=== PATIENT | male | born 1955 | race Caucasian/White ===

== ENCOUNTER 2017-12-06 17:34 | Inpatient (IN) | payer OTHER ==
[~2017-12-06] VITALS: Ht 177.8 cm; Wt 112.1 kg
[~2017-12-06 17:34] MED LIST: 24HOUR ALLERGY10 MG PO; BACLOFEN20 MG PO; BISAC-EVAC10 MG PR; CHROMIUM PICO200 MC1 PO; CINNAMON500 MG PO; COL-RITE100 M1 PO; CONSTULOSE10 GM/15 M PO; COREG12.5 M1 PO; CRANBERRY FRUIT PO; CRANBERRY JUIC425 MG PO; DITROPAN5 MG PO; ENEMA; FLEET ENEMA-AD118 ML PR; FOLIC ACID0.8 MG PO; GENTAMICIN40 MG/1 ML IM; GLUCOTROL XL5 MG PO; KLOR-CON M2020 MEQ PO; LASIX40 MG PO; LIORESAL10 MG PO; LOTENSIN40 MG PO; NORVASC10 MG PO; PRAVACHOL20 MG PO; SENNA PLUS TAB1 EACH PO; THERA-M1 EACH PO; TYLENOL REGULA325 MG PO; VITAMIN D-3 401 EACH PO; VITAMIN D31000 UNI2 PO
[2017-12-06 18:09] LABS: HEMATOCRIT 34.3 % (38.0-50.0); HEMOGLOBIN 12.1 G/DL (12.5-16.6); MCH 31.2 PG (29.0-34.0); MCHC 35.3 G/DL (30.0-36.0); MCV 88.4 FL (86-99); PLATELET COUNT 218 K/uL (156-360); RBC DIS.WIDTH-CV 14.9 % (11.8-14.6); RBC DIS.WIDTH-SD 48.1 % (39-53); RED BLOOD COUNT 3.88 M/uL (4.00-5.50); WHITE BLOOD COUNT 10.8 K/uL (4.1-10.2)
[2017-12-06 18:18] LABS: CHLORIDE 107 mEq/L (99-109); POTASSIUM 3.1 mEq/L (3.7-5.4); SODIUM 142 mEq/L (136-147)
[2017-12-06 18:20] LABS: GLUCOSE 115 mg/dL (70-99)
[2017-12-06 18:24] LABS: CREATININE 2.2 mg/dL (0.6-1.3); GFR ESTIMATE (CALCULATED) 32 mL/min/ (58.99-99999)
[2017-12-06 18:25] LABS: UREA NITROGEN (BUN) 35 mg/dL (9-23)
[2017-12-06] MEDS ORDERED: APRESOLINE10 MG PO (19:32)
[2017-12-06] MEDS ORDERED: GENTAMICIN40 MG/1 ML IM (19:34)
[2017-12-06] MEDS ORDERED: TIZANIDINE HCL4 MG PO ×2 (19:35→19:36)
[2017-12-06] MEDS ORDERED: BACLOFEN20 MG PO (19:36)
[2017-12-06 21:49] VITALS: BP 135/69
[2017-12-06 22:08] LABS: INTACT PARATHYROID HORMONE < 6 pg/mL (10-69)
[2017-12-06 23:20] VITALS: BP 157/78
[2017-12-07 04:25] VITALS: BP 147/73
[2017-12-07 04:59] LABS: APPEARANCE CLOUDY ((CLEAR)); BILIRUBIN NEGATIVE; BLOOD NEGATIVE; COLOR YELLOW ((YELLOW)); GLUCOSE (STRIP) NEGATIVE; KETONES NEGATIVE; LEUKOCYTES MODERATE; NITRITE NEGATIVE; PROTEIN (STRIP) NEGATIVE; SPECIFIC GRAVITY 1.008 (1.000-1.030); UROBILINOGEN 0.2 MG/DL (0.2-1.0)
[2017-12-07 05:14] LABS: URINE OSMOLALITY 277 MOSM/KG (300-1100)
[2017-12-07 05:29] LABS: BACTERIA 1+ /HPF; EPITHELIAL CELLS RARE /HPF; MUCUS NONE SEEN /LPF; RED BLOOD CELLS 0-5 /HPF (0-5); UCUL ADDED? YES
[2017-12-07 05:31] LABS: AMORPHOUS PHOSPHATE CRYSTALS 4+
[2017-12-07 05:59] LABS: HEMATOCRIT 34.2 % (38.0-50.0); HEMOGLOBIN 11.6 G/DL (12.5-16.6); MCH 30.3 PG (29.0-34.0); MCHC 33.9 G/DL (30.0-36.0); MCV 89.3 FL (86-99); PLATELET COUNT 221 K/uL (156-360); RBC DIS.WIDTH-CV 15.2 % (11.8-14.6); RBC DIS.WIDTH-SD 49.5 % (39-53); RED BLOOD COUNT 3.83 M/uL (4.00-5.50); WHITE BLOOD COUNT 7.3 K/uL (4.1-10.2)
[2017-12-07 06:21] LABS: ALBUMIN 3.1 G/DL (3.2-4.8); CHLORIDE 110 MEQ/L (99-109); CREATININE 1.8 MG/DL (0.6-1.3); GFR ESTIMATE (CALCULATED) 41 mL/min/ (58.99-99999); GLUCOSE 112 mg/dL (70-99); SODIUM 143 MEQ/L (136-147); UREA NITROGEN (BUN) 32 mg/dL (9-23)
[2017-12-07 07:14] LABS: EOSINOPHILS,URINE NONE SEEN
[2017-12-07 08:04] VITALS: BP 173/82
[2017-12-07 11:10] LABS: THYROTROPIN (TSH) 1.6 MIU/L (0.4-5.5)
[2017-12-07 11:20] LABS: ALKALINE PHOSPHATASE 51 IU/L (3-129)
[2017-12-07 11:31] VITALS: BP 181/81
[2017-12-07 12:25] LABS: A/G RATIO 0.9 (1.1-1.8); ALBUMIN 3.3 G/DL (3.4-5.0); GLOBULINS 3.5 G/DL (2.3-3.5); TOTAL PROTEIN 6.8 G/DL (6.4-8.2)
[2017-12-07 12:25] LABS: URINE TOTAL PROTEIN 12 MG/DL (0-10)
[2017-12-07 15:00] VITALS: BP 139/85
[2017-12-07 16:56] LABS: CHLORIDE 112 MEQ/L (99-109); CREATININE 1.6 MG/DL (0.6-1.3); GFR ESTIMATE (CALCULATED) 47 mL/min/ (58.99-99999); PHOSPHORUS 3.2 mg/dL (2.5-4.9); POTASSIUM 3.5 MEQ/L (3.7-5.4); SODIUM 142 MEQ/L (136-147); UREA NITROGEN (BUN) 32 mg/dL (9-23)
[2017-12-07 17:05] LABS: GLUCOSE 80 mg/dL (70-99)
[2017-12-07 19:59] VITALS: BP 134/78
[2017-12-08] VITALS (7 sets, daily range): BP systolic 101–156; BP diastolic 53–96
[2017-12-08 06:46] LABS: HEMATOCRIT 36.2 % (38.0-50.0); MCHC 33.1 G/DL (30.0-36.0); MCV 90.5 FL (86-99); PLATELET COUNT 209 K/uL (156-360); RBC DIS.WIDTH-CV 15.2 % (11.8-14.6); RBC DIS.WIDTH-SD 50.4 % (39-53); WHITE BLOOD COUNT 8.5 K/uL (4.1-10.2)
[2017-12-08 07:01] LABS: ALBUMIN 3.2 G/DL (3.2-4.8); CHLORIDE 113 MEQ/L (99-109); CREATININE 1.5 MG/DL (0.6-1.3); GFR ESTIMATE (CALCULATED) 50 mL/min/ (58.99-99999); GLUCOSE 84 mg/dL (70-99); PHOSPHORUS 3.4 mg/dL (2.5-4.9); POTASSIUM 3.6 MEQ/L (3.7-5.4); SODIUM 140 MEQ/L (136-147); UREA NITROGEN (BUN) 26 mg/dL (9-23)
[2017-12-08 14:54] LABS: MAGNESIUM 1.9 mg/dl (1.3-2.7)
[2017-12-09 07:10] VITALS: BP 143/81
[2017-12-09 07:38] LABS: BASOPHIL (%) 1.4 % (0-1); BASOPHIL COUNT 0.1 K/uL (0-0.1); EOSINOPHIL COUNT 0.3 K/uL (0-0.3); HEMATOCRIT 39.9 % (38.0-50.0); HEMOGLOBIN 13.2 G/DL (12.5-16.6); IMMATURE GRANULOCYTE (%) 0.7 % (0.0-0.7); LYMPHOCYTE (%) 30.8 % (15-42); LYMPHOCYTE COUNT 2.7 K/uL (1.0-2.8); MCH 30.3 PG (29.0-34.0); MCHC 33.1 G/DL (30.0-36.0); MCV 91.5 FL (86-99); MONOCYTE COUNT 1.2 K/uL (0-0.8); NEUTROPHIL (%) 49.1 % (45-76); NEUTROPHIL COUNT 4.2 K/uL (1.8-6.4); PLATELET COUNT 196 K/uL (156-360); RBC DIS.WIDTH-CV 15.4 % (11.8-14.6); RBC DIS.WIDTH-SD 51.2 % (39-53); RED BLOOD COUNT 4.36 M/uL (4.00-5.50); WHITE BLOOD COUNT 8.6 K/uL (4.1-10.2)
[2017-12-09 08:14] LABS: ALBUMIN 3.3 G/DL (3.2-4.8); CHLORIDE 113 MEQ/L (99-109); CREATININE 1.5 MG/DL (0.6-1.3); GFR ESTIMATE (CALCULATED) 50 mL/min/ (58.99-99999); PHOSPHORUS 3.2 mg/dL (2.5-4.9); POTASSIUM 4.1 MEQ/L (3.7-5.4); SODIUM 144 MEQ/L (136-147); UREA NITROGEN (BUN) 26 mg/dL (9-23)
[2017-12-09 08:15] LABS: GLUCOSE 106 mg/dL (70-99)
[2017-12-09 13:44] LABS: ALBUMIN 3.29 G/DL (3.6-4.9); ALPHA-1 GLOBULIN 0.39 G/DL (0.15-0.40); ALPHA-2 GLOBULIN 0.92 G/DL (0.45-0.85); BETA-GLOBULIN 0.92 G/DL (0.65-1.15); GAMMA-GLOBULIN 1.28 G/DL (0.60-1.35)
[2017-12-09 16:00] VITALS: BP 147/81
[2017-12-09 18:10] LABS: ALBUMIN 3.3 G/DL (3.2-4.8); CHLORIDE 109 MEQ/L (99-109); CREATININE 1.2 MG/DL (0.6-1.3); GFR ESTIMATE (CALCULATED) > 59 mL/min/ (58.99-99999); GLUCOSE 151 mg/dL (70-99); PHOSPHORUS 2.3 mg/dL (2.5-4.9); POTASSIUM 3.3 MEQ/L (3.7-5.4); SODIUM 140 MEQ/L (136-147); UREA NITROGEN (BUN) 22 mg/dL (9-23)
[2017-12-09 23:10] VITALS: BP 132/73; BP 132/735
[2017-12-10 06:02] LABS: ALBUMIN 3.3 G/DL (3.2-4.8); CHLORIDE 110 MEQ/L (99-109); CREATININE 1.2 MG/DL (0.6-1.3); GFR ESTIMATE (CALCULATED) > 59 mL/min/ (58.99-99999); GLUCOSE 125 mg/dL (70-99); PHOSPHORUS 2.8 mg/dL (2.5-4.9); POTASSIUM 3.3 MEQ/L (3.7-5.4); SODIUM 141 MEQ/L (136-147); UREA NITROGEN (BUN) 18 mg/dL (9-23)
[2017-12-10 06:16] LABS: CHLORIDE 111 MEQ/L (99-109); CREATININE 1.1 MG/DL (0.6-1.3); GFR ESTIMATE (CALCULATED) > 59 mL/min/ (58.99-99999); GLUCOSE 123 mg/dL (70-99); POTASSIUM 3.4 MEQ/L (3.7-5.4); SODIUM 142 MEQ/L (136-147); UREA NITROGEN (BUN) 18 mg/dL (9-23)
[2017-12-10 07:05] VITALS: BP 145/86
[2017-12-10 15:50] VITALS: BP 144/81
[2017-12-10 23:28] VITALS: BP 134/68
[2017-12-11 06:57] LABS: ALBUMIN 3.3 G/DL (3.2-4.8); CHLORIDE 111 MEQ/L (99-109); CREATININE 1.1 MG/DL (0.6-1.3); GFR ESTIMATE (CALCULATED) > 59 mL/min/ (58.99-99999); GLUCOSE 101 mg/dL (70-99); PHOSPHORUS 2.8 mg/dL (2.5-4.9); POTASSIUM 3.3 MEQ/L (3.7-5.4); SODIUM 143 MEQ/L (136-147); UREA NITROGEN (BUN) 15 mg/dL (9-23)
[2017-12-11 07:15] VITALS: BP 157/80
[2017-12-11 15:30] VITALS: BP 153/85
[2017-12-11 21:10] VITALS: BP 123/77
[2017-12-11 22:53] VITALS: BP 140/80
[2017-12-12 06:44] LABS: BASOPHIL (%) 1.1 % (0-1); BASOPHIL COUNT 0.1 K/uL (0-0.1); EOSINOPHIL (%) 3.1 % (0-5); EOSINOPHIL COUNT 0.4 K/uL (0-0.3); HEMOGLOBIN 12.5 G/DL (12.5-16.6); IMMATURE GRANULOCYTE (%) 1.8 % (0.0-0.7); LYMPHOCYTE (%) 18.1 % (15-42); MCH 29.5 PG (29.0-34.0); MCHC 33.8 G/DL (30.0-36.0); MONOCYTE (%) 12.1 % (3-12); MONOCYTE COUNT 1.4 K/uL (0-0.8); NEUTROPHIL (%) 63.8 % (45-76); NEUTROPHIL COUNT 7.2 K/uL (1.8-6.4); PLATELET COUNT 241 K/uL (156-360); RBC DIS.WIDTH-CV 15.5 % (11.8-14.6); RBC DIS.WIDTH-SD 48.9 % (39-53); RED BLOOD COUNT 4.24 M/uL (4.00-5.50); WHITE BLOOD COUNT 11.2 K/uL (4.1-10.2)
[2017-12-12 06:46] LABS: MCV 87.3 FL (86-99)
[2017-12-12 06:56] LABS: ALBUMIN 3.4 G/DL (3.2-4.8); CHLORIDE 113 MEQ/L (99-109); CREATININE 1.1 MG/DL (0.6-1.3); GFR ESTIMATE (CALCULATED) > 59 mL/min/ (58.99-99999); GLUCOSE 118 mg/dL (70-99); PHOSPHORUS 2.7 mg/dL (2.5-4.9); SODIUM 142 MEQ/L (136-147); UREA NITROGEN (BUN) 17 mg/dL (9-23)
[2017-12-12 06:58] LABS: POTASSIUM 4.1 MEQ/L (3.7-5.4)
[2017-12-12 07:40] VITALS: BP 174/102
[2017-12-13] VITALS: BP 126/76
[2017-12-13 08:21] VITALS: BP 138/73
[2017-12-13 15:52] VITALS: BP 142/77
[2017-12-13 19:33] VITALS: BP 130/85
[2017-12-13 23:17] VITALS: BP 131/77
[2017-12-14 06:42] LABS: HEMATOCRIT 33.3 % (38.0-50.0); HEMOGLOBIN 11.2 G/DL (12.5-16.6); MCH 30.2 PG (29.0-34.0); MCHC 33.6 G/DL (30.0-36.0); MCV 89.8 FL (86-99); PLATELET COUNT 222 K/uL (156-360); RBC DIS.WIDTH-CV 16.2 % (11.8-14.6); RBC DIS.WIDTH-SD 52.9 % (39-53); RED BLOOD COUNT 3.71 M/uL (4.00-5.50); WHITE BLOOD COUNT 12.8 K/uL (4.1-10.2)
[2017-12-14 07:17] LABS: CHLORIDE 114 MEQ/L (99-109); CREATININE 0.9 MG/DL (0.6-1.3); GFR ESTIMATE (CALCULATED) > 59 mL/min/ (58.99-99999); GLUCOSE 107 mg/dL (70-99); POTASSIUM 3.6 MEQ/L (3.7-5.4); SODIUM 144 MEQ/L (136-147); UREA NITROGEN (BUN) 16 mg/dL (9-23)
[2017-12-14 08:05] VITALS: BP 123/80
== END 2017-12-14 13:15 | DRG 698 ==
LOC: EME 17:34 → 5EAST 19:32 → EDOF 19:32 → ENRESERV 19:33 → 5EAST 21:04 → ENPENDDIS 12-14 → 5EAST 12-14 13:15
PROVIDERS: Emergency Medicine; Hospitalist; Internal Medicine; Internal Medicine Nephrology; Physician Assistant Medical; Thoracic Surgery (Cardiothoracic Vascular Surgery)
PROC: 0WBC4ZX Excision of Mediastinum, Percutaneous Endoscopic Approach, Diagnostic (ICD-10-PCS; principal; 2017-12-13)
PROC: 0T2BX0Z Change Drainage Device in Bladder, External Approach (ICD-10-PCS; 2017-12-13)
DX: T83.511A Infection and inflammatory reaction due to indwelling urethral catheter, initial encounter (principal); N39.0 Urinary tract infection, site not specified; N17.9 Acute kidney failure, unspecified; B96.89 Other specified bacterial agents as the cause of diseases classified elsewhere; E83.52 Hypercalcemia; E87.6 Hypokalemia; N31.9 Neuromuscular dysfunction of bladder, unspecified; R59.0 Localized enlarged lymph nodes; J18.9 Pneumonia, unspecified organism; D71 Functional disorders of polymorphonuclear neutrophils; N99.512 Cystostomy malfunction; Y83.3 Surgical operation with formation of external stoma as the cause of abnormal reaction of the patient, or of later complication, without mention of misadventure at the time of the procedure; I12.9 Hypertensive chronic kidney disease with stage 1 through stage 4 chronic kidney disease, or unspecified chronic kidney disease; E11.22 Type 2 diabetes mellitus with diabetic chronic kidney disease; N18.9 Chronic kidney disease, unspecified; D63.8 Anemia in other chronic diseases classified elsewhere; G35 Multiple sclerosis; G82.50 Quadriplegia, unspecified; E78.00 Pure hypercholesterolemia, unspecified; E78.5 Hyperlipidemia, unspecified; J84.10 Pulmonary fibrosis, unspecified; K59.00 Constipation, unspecified; N32.89 Other specified disorders of bladder; E66.9 Obesity, unspecified; Z68.34 Body mass index [BMI] 34.0-34.9, adult; R60.1 Generalized edema; Z74.01 Bed confinement status; Z79.4 Long term (current) use of insulin; Z86.718 Personal history of other venous thrombosis and embolism; Z87.891 Personal history of nicotine dependence
CPT/HCPCS: 71045; 71260; 76770; 80048; 80048 91; 80069; 81003; 82164 90; 82306; 82330; 82652 90; 82948; 83519 90; 83735; 83883 90; 83935; 83970; 84075; 84165; 84166; 84443; 85025; 85027; 86335; 87077; 87086; 87186; 88305; 88312; 89190; 93005; 94640; 94640 76; 99202; 99281; 99285; J0630; J0690; J0696; J1644; J1815; J3010; J3489; J7030; J7643

== ENCOUNTER → 2018-02-22 | Outpatient (CLI) | payer OTHER ==
[~2018-02-22] MED LIST changes: +APRESOLINE10 MG PO; +TIZANIDINE HCL4 MG PO
== END ==
LOC: RES 12:49
DX: D86.9 Sarcoidosis, unspecified (principal)
CPT/HCPCS: 94060; 94729